=== PATIENT | male | born 1995 | race Caucasian/White ===

== ENCOUNTER 2017-10-08 19:18 | Emergency (ER) | payer OTHER ==
[~2017-10-08] VITALS: Ht 177.8 cm; Wt 90.0 kg
[2017-10-08 19:29] VITALS: BP 120/78
== END 2017-10-08 20:23 | disposition home or self-care (01) ==
LOC: ED 20:17
DX: L03.113 Cellulitis of right upper limb (principal); F90.9 Attention-deficit hyperactivity disorder, unspecified type; F41.9 Anxiety disorder, unspecified; F32.9 Major depressive disorder, single episode, unspecified; W22.01XA Walked into wall, initial encounter; Y93.89 Activity, other specified; Y92.89 Other specified places as the place of occurrence of the external cause; Y99.8 Other external cause status
CPT/HCPCS: 99284

== ENCOUNTER 2018-02-02 07:07 | Emergency (ER) | payer SELFPAY ==
[~2018-02-02] VITALS: Ht 177.8 cm; Wt 82.0 kg
[2018-02-02] MEDS ORDERED: DIPHENHYDRAMINE 50 MG/ML, 1ML IVPush ONE (07:30)
[2018-02-02] MEDS ORDERED: KETOROLAC 30 MG/1 ML IVPush ONE (07:30)
[2018-02-02] MEDS ORDERED: SODIUM CHLORIDE 0.9% 1,000ML IVBOLUS ONE (07:30)
[2018-02-02] MEDS ORDERED: SODIUM CHLORIDE FLUSH 10ML SYR IVF ONE (07:30)
[2018-02-02] MEDS ORDERED: METOCLOPRAMIDE 5 MG/ML, 2ML IVPush ONE (07:30)
[2018-02-02] MEDS ORDERED: DIPHENHYDRAMINE 50 MG/ML, 1ML ONE (08:05)
[2018-02-02] MEDS ORDERED: METOCLOPRAMIDE 5 MG/ML, 2ML ONE (08:05)
[2018-02-02] MEDS ORDERED: KETOROLAC 30 MG/1 ML ONE (08:05)
[2018-02-02 08:17] VITALS: BP 99/68
== END 2018-02-02 09:30 | disposition home or self-care (01) ==
LOC: ED 09:15
DX: G44.209 Tension-type headache, unspecified, not intractable (principal); F17.200 Nicotine dependence, unspecified, uncomplicated
CPT/HCPCS: 96374; 96375; 99284; J1200; J1885; J2765; J7030

== ENCOUNTER 2018-02-09 13:41 | Emergency (ER) | payer SELFPAY ==
[~2018-02-09] VITALS: Ht 177.8 cm; Wt 85.4 kg
[2018-02-09 14:03] VITALS: BP 110/72
[2018-02-09] MEDS ORDERED: SODIUM CHLORIDE FLUSH 10ML SYR IVF ONE (14:30)
[2018-02-09] MEDS ORDERED: METOCLOPRAMIDE 5 MG/ML, 2ML IVPush ONE (14:30)
[2018-02-09] MEDS ORDERED: KETOROLAC 30 MG/1 ML IVPush ONE (14:30)
[2018-02-09] MEDS ORDERED: DIPHENHYDRAMINE 50 MG/ML, 1ML IVPush ONE (14:30)
[2018-02-09] MEDS ORDERED: KETOROLAC 30 MG/1 ML ONE (14:30)
[2018-02-09] MEDS ORDERED: METOCLOPRAMIDE 5 MG/ML, 2ML ONE (14:31)
[2018-02-09] MEDS ORDERED: DIPHENHYDRAMINE 50 MG/ML, 1ML ONE (14:31)
== END 2018-02-09 15:57 | disposition home or self-care (01) ==
LOC: ED 15:40
DX: G44.221 Chronic tension-type headache, intractable (principal); F32.9 Major depressive disorder, single episode, unspecified; F90.9 Attention-deficit hyperactivity disorder, unspecified type; G44.229 Chronic tension-type headache, not intractable
CPT/HCPCS: 99281

== ENCOUNTER 2018-07-13 19:52 | Emergency (ER) | payer SELFPAY ==
[~2018-07-13] VITALS: Ht 177.8 cm; Wt 84.2 kg
[2018-07-13 19:54] VITALS: BP 104/70
[2018-07-13 20:23] LABS: BASOPHILS # (AUTO) 0.03 x10^3/uL (0-0.1); BASOPHILS % (AUTO) 0 % (0-1); EOSINOPHILS % (AUTO) 2 % (1-7); LYMPHOCYTES # (AUTO) 2.98 x10^3/uL (1-3.4); LYMPHOCYTES % (AUTO) 33 % (22-44); MD NO; MEAN CORPUSCULAR HEMOGLOBIN 31.2 pg (27.5-34.5); MEAN CORPUSCULAR HGB CONC 34.6 g/dL (33.2-36.2); MEAN PLATELET VOLUME 6.9 fL (7.4-10.4); MONOCYTES # (AUTO) 0.92 x10^3/uL (0.2-0.8); MONOCYTES % (AUTO) 10 % (2-9); NEUTROPHILS # (AUTO) 4.79 x10^3/uL (1.8-6.8); NEUTROPHILS % (AUTO) 54 % (42-75); PLATELET COUNT 380 x10^3/uL (130-400); RED BLOOD COUNT 5.47 x10^6/uL (4.38-5.82); RED CELL DISTRIBUTION WIDTH 12.9 % (9.4-14.8)
[2018-07-13 20:34] LABS: ANION GAP 9 mmol/L (5-15); CALCIUM 8.9 mg/dL (8.5-10.1); CHLORIDE 105 mmol/L (98-107); CREATININE 0.93 mg/dL (0.7-1.3)
== END 2018-07-13 21:06 | disposition home or self-care (01) ==
LOC: ED 21:00
DX: F12.922 Cannabis use, unspecified with intoxication with perceptual disturbance (principal); F90.9 Attention-deficit hyperactivity disorder, unspecified type; F41.1 Generalized anxiety disorder; F32.9 Major depressive disorder, single episode, unspecified; Z88.1 Allergy status to other antibiotic agents; Z88.8 Allergy status to other drugs, medicaments and biological substances
CPT/HCPCS: 36415; 80048; 85025; 99284

== ENCOUNTER 2019-12-19 12:47 | Emergency (ER) | payer OTHER ==
[~2019-12-19] VITALS: Ht 177.8 cm; Wt 90.0 kg
--- NOTE | 2019-12-19 13:15 | NUR ---
Pt brought in by Jennifer WOLF. States he has been drinking a lot, 6 months ago he gave up on himself after breaking up with his girlfriend and has been getting increasing worse. Today he was outside smoking and had the thought and urge to walk in front of the garbage truck to end his life. He called jennifer WOLF to get help. Reports drinking 2 bottles of alcohol since yesterday. States he is "feeling depressed" and blew his chance with his ex girlfriend again.
[2019-12-19 13:21] LABS: BASOPHILS # (AUTO) 0.02 x10^3/uL (0-0.1); BASOPHILS % (AUTO) 0 % (0-1); EOSINOPHILS # (AUTO) 0.08 x10^3/uL (0-0.4); EOSINOPHILS % (AUTO) 1 % (1-7); LYMPHOCYTES # (AUTO) 1.31 x10^3/uL (1-3.4); LYMPHOCYTES % (AUTO) 17 % (22-44); MD NO; MEAN CORPUSCULAR HEMOGLOBIN 30.6 pg (27.5-34.5); MEAN CORPUSCULAR VOLUME 90.1 fL (81-97); MEAN PLATELET VOLUME 7.2 fL (7.4-10.4); MONOCYTES # (AUTO) 0.62 x10^3/uL (0.2-0.8); MONOCYTES % (AUTO) 8 % (2-9); NEUTROPHILS # (AUTO) 5.51 x10^3/uL (1.8-6.8); NEUTROPHILS % (AUTO) 73 % (42-75); PLATELET COUNT 414 x10^3/uL (130-400); RED BLOOD COUNT 5.24 x10^6/uL (4.38-5.82); RED CELL DISTRIBUTION WIDTH 13.1 % (9.4-14.8)
--- NOTE | 2019-12-19 13:22 | NUR ---
ARMAMENT MECHANIC at bedside speaking to patient
[2019-12-19 13:28] LABS: ANION GAP 10 mmol/L (5-15); CALCIUM 8.9 mg/dL (8.5-10.1); CHLORIDE 107 mmol/L (98-107); CREATININE 1.13 mg/dL (0.7-1.3)
[2019-12-19 13:30] LABS: SALICYLATE LEVEL < 1.7 mg/dL (2.8-20.0)
[2019-12-19 14:40] VITALS: BP 121/83
--- NOTE | 2019-12-19 14:41 | NUR ---
Patient discharged home, Patient reports there is no intention to hurt himself. Does have a safety plan in place and a support system if he begins to feel depressed again. Plans to attend the AA meeting tonight. Ambulatory with steady gait. NAD noted at time of discharge. RR even and unlabored. ALL patient belongings were returned to patient.
== END 2019-12-19 15:04 | disposition home or self-care (01) ==
LOC: ED 13:38
DX: F33.1 Major depressive disorder, recurrent, moderate (principal); F10.10 Alcohol abuse, uncomplicated; Y90.9 Presence of alcohol in blood, level not specified
CPT/HCPCS: 36415; 80048; 80307; 82040; 85025; 93005; 99284

== ENCOUNTER 2019-12-31 17:11 | Emergency (ER) | payer OTHER ==
[~2019-12-31] VITALS: Ht 177.8 cm; Wt 90.0 kg
--- NOTE | 2019-12-31 17:51 | NUR ---
PATIENT BROUGTH BACK FROM TRIAGE WITH CHIEF COMPLAINT OF SVT X3 ESPISODES TODAY. STATES HX OF SVT SINCE [facility]. NO AMMUNITION OFFICER
--- NOTE | 2019-12-31 17:52 | NUR ---
NO COMPLAINTS OF SOB, CP, N/V AT THIS TIME
[2019-12-31 18:26] LABS: ALBUMIN 3.9 g/dL (3.4-5.0); ANION GAP 5 mmol/L (5-15); CHLORIDE 106 mmol/L (98-107); CREATININE 1.06 mg/dL (0.7-1.3); T4 (THYROXINE) 9.8 mcg/dL (4.5-12.1)
[2019-12-31 18:30] LABS: TROPONIN I < 0.015 ng/mL (0.000-0.045)
[2019-12-31 18:37] LABS: BASOPHILS # (AUTO) 0.03 x10^3/uL (0-0.1); BASOPHILS % (AUTO) 0 % (0-1); EOSINOPHILS # (AUTO) 0.02 x10^3/uL (0-0.4); EOSINOPHILS % (AUTO) 0 % (1-7); LYMPHOCYTES # (AUTO) 2.08 x10^3/uL (1-3.4); LYMPHOCYTES % (AUTO) 20 % (22-44); MD NO; MEAN CORPUSCULAR HEMOGLOBIN 31.2 pg (27.5-34.5); MEAN CORPUSCULAR HGB CONC 34.2 g/dL (33.2-36.2); MEAN CORPUSCULAR VOLUME 91.3 fL (81-97); MEAN PLATELET VOLUME 7.2 fL (7.4-10.4); MONOCYTES # (AUTO) 0.72 x10^3/uL (0.2-0.8); MONOCYTES % (AUTO) 7 % (2-9); NEUTROPHILS # (AUTO) 7.79 x10^3/uL (1.8-6.8); NEUTROPHILS % (AUTO) 73 % (42-75); PLATELET COUNT 389 x10^3/uL (130-400); RED BLOOD COUNT 4.99 x10^6/uL (4.38-5.82); RED CELL DISTRIBUTION WIDTH 12.9 % (9.4-14.8)
--- NOTE | 2019-12-31 18:38 | NUR ---
PT RESTING IN BED, NO COMPLAINTS OF DISCOMFORT AT THIS TIME
--- NOTE | 2019-12-31 18:53 | NUR ---
received report from Jaqueline GILLIS. Currently awaiting lab results and monitoring VS.
[2019-12-31 20:05] VITALS: BP 120/78
== END 2020-01-01 05:16 | disposition home or self-care (01) ==
LOC: ED 20:05
DX: R00.2 Palpitations (principal); F17.200 Nicotine dependence, unspecified, uncomplicated
CPT/HCPCS: 36415; 80048; 82040; 84436; 84443; 84484; 85025; 93005; 99284

== ENCOUNTER → 2020-02-16 | Outpatient (CLI) | payer OTHER | END | disposition home or self-care (01) | LOC: CFH 13:43 → EDSTATUS 14:00 | PROVIDERS: ATTEND Internal Medicine Cardiovascular Disease | DX: I47.1 Supraventricular tachycardia (principal) | CPT/HCPCS: 93306 ==

== ENCOUNTER 2020-08-27 18:47 | Emergency (ER) | payer OTHER ==
[~2020-08-27] VITALS: Ht 177.8 cm; Wt 93.0 kg
[~2020-08-27 18:47] MED LIST: ACET325T26 PO; METO25TA91 PO
--- NOTE | 2020-08-27 20:02 | NUR ---
PT WHEELED FROM [facility]. C/O PAIN C AMBULATION, STIFFNESS TO R KNEE. SAW ORTHO ON TH. AT . WILL CTM.
[2020-08-27 20:30] VITALS: BP 123/65
== END 2020-08-27 20:32 | disposition home or self-care (01) ==
LOC: ED 19:17
DX: M25.561 Pain in right knee (principal); R26.2 Difficulty in walking, not elsewhere classified
CPT/HCPCS: 99283

== ENCOUNTER → 2020-09-13 | Outpatient (CLI) | payer OTHER | END | disposition home or self-care (01) | LOC: CFH 08:40 | PROVIDERS: ATTEND Physician Assistant | DX: M84.362A Stress fracture, left tibia, initial encounter for fracture (principal); X58.XXXA Exposure to other specified factors, initial encounter; Y93.89 Activity, other specified; Y92.89 Other specified places as the place of occurrence of the external cause; Y99.8 Other external cause status ==